=== PATIENT | female | born 2000 | race Caucasian/White ===

== ENCOUNTER 2019-06-12 19:01 | Observation (INO) | payer MEDICAID, OTHER ==
[2019-06-12 19:30] VITALS: BP 121/80; PULSE 92
[2019-06-12 19:59] LABS: Appearance CLEAR (CLEAR); Bilirubin NEGATIVE (NEGATIVE); Blood NEGATIVE Ery/ul (0-5); Epithelial Cells RARE /HPF (FEW); Glucose NEGATIVE (NEGATIVE); Ketones NEGATIVE (NEGATIVE); Leukocyte Esterase NEGATIVE (NEGATIVE); Mucus SLIGHT /HPF (NEGATIVE); Nitrite NEGATIVE (NEGATIVE); Protein,Urine Dip NEGATIVE (Negative); Specific Gravity 1.005 (1.005-1.025); Urobilinogen NEGATIVE mg/dL (0-1)
[2019-06-12 20:10] LABS: Amphetamine,Urine NEGATIVE (NEGATIVE); Barbiturate,Urine NEGATIVE (NEGATIVE); Benzodiazepine,Urine NEGATIVE (NEGATIVE); Cocaine,Urine NEGATIVE (NEGATIVE); Methadone,Urine NEGATIVE (NEGATIVE); Opiate,Urine NEGATIVE (NEGATIVE); PCP,Urine NEGATIVE (NEGATIVE); THC,Urine NEGATIVE (NEGATIVE)
[2019-06-12] MEDS ORDERED: Lactated Ringers 1,000 ML IV ONE ×2 (20:41→20:44)
== END 2019-06-12 22:33 | disposition home or self-care (01) ==
LOC: OB 19:01
PROVIDERS: ADMIT Obstetrics & Gynecology; ATTEND Obstetrics & Gynecology
DX: Z34.82 Encounter for supervision of other normal pregnancy, second trimester (principal)
CPT/HCPCS: 80307; 81001; G0378

== ENCOUNTER 2019-07-29 13:30 | Observation (INO) | payer OTHER ==
[2019-07-29 15:14] VITALS: BP 117/62; PULSE 96; O2SAT 98
== END 2019-07-29 14:50 | disposition home or self-care (01) ==
LOC: OB 13:30
PROVIDERS: ADMIT Family Medicine; ATTEND Family Medicine
DX: Z34.83 Encounter for supervision of other normal pregnancy, third trimester (principal)
CPT/HCPCS: G0378

== ENCOUNTER 2019-08-01 07:14 | Emergency (ER) | payer OTHER ==
--- NOTE | 2019-08-01 07:42 | ERPHSYRPT ---
- History of Present Illness Time Seen by Provider: 08/01/19 07:38 Source: patient, family Exam Limitations: no limitations Physician History: This is a 18-year-old female who is 32 weeks and was diagnosed with tachycardia recently. Patient's retail manager is Dr. Lutz. Patient is known to have induced anemia and an elevated white count yesterday. Dr. Michelle is her OB doctor. Patient senses intermittent palpitations. She denies shortness of breath, cough, chest pain or abdominal pain. She has no vaginal bleeding. She has no fever Timing/Duration: today Activities at Onset: none Quality: other (Palpitations) Chest Pain Radiation: no radiation Severity of Pain-Max: none Severity of Pain-Current: none Modifying Factors: Improves With: nothing Nitro Today/Relief: no nitro taken today Aspirin Treatment Today: no aspirin today Associated Symptoms: denies symptoms Prior Chest Pain/Cardiac Workup: no prior chest pain, recently seen/treated Allergies/Adverse Reactions: No Known Drug Allergies Allergy (Verified 08/01/19 07:30) Home Medications: Vits W-Ca,Fe,FA(<1Mg) [] 1 each PO DAILY 06/12/19 [History] - Review of Systems Constitutional: No Symptoms Eyes: No Symptoms Ears, Nose, & Throat: No Symptoms Respiratory: No Symptoms Cardiac: Palpitations Abdominal/Gastrointestinal: No Symptoms Genitourinary Symptoms: No Symptoms Musculoskeletal: No Symptoms Skin: No Symptoms Neurological: No Symptoms Psychological: No Symptoms Endocrine: No Symptoms Hematologic/Lymphatic: No Symptoms Immunological/Allergic: No Symptoms All Other Systems: Reviewed and Negative - Past Medical History Pertinent Past Medical History: Yes Neurological History: No Pertinent History ENT History: No Pertinent History Cardiac History: No Pertinent History Respiratory History: No Pertinent History Endocrine Medical History: No Pertinent History Musculoskeletal History: No Pertinent History GI Medical History: Irritable Bowel History: No Pertinent History Psycho-Social History: No Pertinent History Female Reproductive Disorders: Other Other Medical History: bicornate uterus - Past Surgical History Past Surgical History: Yes Neuro Surgical History: No Pertinent History Cardiac: No Pertinent History Respiratory: No Pertinent History Gastrointestinal: No Pertinent History Genitourinary: No Pertinent History Musculoskeletal: No Pertinent History Female Surgical History: No Pertinent History - Social History Smoking Status: Never smoker Drug Use: none - Nursing Vital Signs Nursing Vital Signs: Initial Vital Signs Temperature 97.9 F 08/01/19 07:18 Pulse Rate 84 08/01/19 07:18 Respiratory Rate 16 08/01/19 07:18 Blood Pressure 107/72 08/01/19 07:18 O2 Sat by Pulse Oximetry 99 08/01/19 07:18 Pain Scale Pain Intensity 0 - Physical Exam General Appearance: no apparent distress, alert, anxiety Eye Exam: PERRL/EOMI, eyes nml inspection Ears, Nose, Throat Exam: normal ENT inspection, moist mucous membranes Neck Exam: normal inspection, non-tender, supple, full range of motion Respiratory Exam: normal breath sounds, lungs clear, airway intact, No chest tenderness, No respiratory distress Cardiovascular Exam: regular rate/rhythm, normal heart sounds, normal peripheral pulses Gastrointestinal/Abdomen Exam: soft, normal bowel sounds, No tenderness Pelvic Exam: not done Rectal Exam: not done Back Exam: normal inspection, normal range of motion, No CVA tenderness, No vertebral tenderness Extremity Exam: normal inspection, normal range of motion, pelvis stable Neurologic Exam: alert, oriented x 3, cooperative, business management manager II-XII nml as tested, nml cerebellar function, nml station & gait Skin Exam: normal color, warm, dry Lymphatic Exam: No adenopathy SpO2 Interpretation: normal O2 Delivery: Room Air - Course Nursing assessment & vital signs reviewed: Yes EKG Interpreted by Me: RATE (85), NORMAL AXIS, NORMAL INTERVALS, NORMAL QRS, Other (No comparison EKG) Ordered Tests: Active Orders 24 hr Category Date Time Status EKG-ER Only STAT Care 08/01/19 07:46 Active CBC W DIFF Stat Lab 08/01/19 08:02 Completed CMP Stat Lab 08/01/19 08:02 Completed CULTURE,URINE Stat Lab 08/01/19 08:31 Received Manual Differential NC Stat Lab 08/01/19 08:02 Completed T4 (Thyroxine) Stat Lab 08/01/19 08:02 Completed TSH [TSH, 3RD Generation] Stat Lab 08/01/19 08:02 Completed UA W/RFX UR CULTURE Stat Lab 08/01/19 08:31 Completed Medication Summary Discontinued Medications Generic Name Dose Route Start Last Admin Trade Name Freq PRN Reason Stop Dose Admin Cephalexin HCl 500 mg 08/01/19 09:37 08/01/19 09:51 Keflex 500 Mg PO 08/01/19 09:38 500 mg STAT ONE Administration Cephalexin HCl Confirm 08/01/19 09:51 Keflex 500 Mg Administered 08/01/19 09:52 Dose 500 mg .ROUTE .STK-MED ONE Lab/Rad Data: Laboratory Result Diagrams 08/01/19 08:02 08/01/19 08:02 Laboratory Results 08/01/19 08/01/19 08/01/19 Range/Units 08:31 08:02 08:02 WBC (4.0-10.5) K/mm3 RBC (4.1-5.4) M/mm3 Hgb (12.0-16.0) gm/dl Hct (35-47) % MCV (78-100) fl MCH (26-32) pg MCHC (32-36) g/dl RDW (11.5-14.0) % Plt Count (150-450) K/mm3 MPV (7.5-11.0) fl Sodium 136 L (137-145) mmol/L Potassium 4.2 (3.5-5.1) mmol/L Chloride 106 (98-107) mmol/L Carbon Dioxide 25 (22-30) mmol/L Anion Gap 9.2 (5-15) MEQ/L BUN 11 (7-17) mg/dL Creatinine 0.53 (0.52-1.04) mg/dL Estimated GFR > 60.0 ML/MIN Glucose 92 (74-106) mg/dL Calcium 9.3 (8.4-10.2) mg/dL Total Bilirubin 0.30 (0.2-1.3) mg/dL AST 17 (14-36) U/L ALT 16 (0-35) U/L Alkaline Phosphatase 105 (38-126) U/L Serum Total Protein 7.2 (6.3-8.2) g/dL Albumin 3.5 (3.5-5.0) g/dL Thyroxine (T4) 15.0 H (5.53-10.96) ug/dL TSH 3rd Generation (0.47-4.68) mIU/L Urine Color YELLOW (YELLOW) Urine Appearance SLIGHTLY CLOUDY (CLEAR) Urine pH 7.0 (5-6) Ur Specific [place] 1.008 (1.005-1.025) Urine Protein NEGATIVE (Negative) Urine Ketones NEGATIVE (NEGATIVE) Urine Blood NEGATIVE (0-5) Sonido/ul Urine Nitrite NEGATIVE (NEGATIVE) Urine Bilirubin NEGATIVE (NEGATIVE) Urine Urobilinogen NEGATIVE (0-1) mg/dL Ur Leukocyte Esterase MODERATE (NEGATIVE) Urine WBC (Auto) 6-10 (0-5) /HPF Urine RBC (Auto) 3-5 (0-2) /HPF U Epithel Cells (Auto) MODERATE (FEW) /HPF Urine Bacteria (Auto) MODERATE (NEGATIVE) /HPF U Non-Squamous Epi Cells RARE (FEW) /HPF Urine Mucus (Auto) SLIGHT (NEGATIVE) /HPF Urine Culture Reflexed YES (NO) Urine Glucose NEGATIVE (NEGATIVE) mg/dL 08/01/19 08/01/19 Range/Units 08:02 08:02 WBC 14.4 H (4.0-10.5) K/mm3 RBC 3.76 L (4.1-5.4) M/mm3 Hgb 11.0 L (12.0-16.0) gm/dl Hct 33.7 L (35-47) % MCV 89.6 (78-100) fl MCH 29.3 (26-32) pg MCHC 32.6 (32-36) g/dl RDW 12.9 (11.5-14.0) % Plt Count 226 (150-450) K/mm3 MPV 10.9 (7.5-11.0) fl Sodium (137-145) mmol/L Potassium (3.5-5.1) mmol/L Chloride (98-107) mmol/L Carbon Dioxide (22-30) mmol/L Anion Gap (5-15) MEQ/L BUN (7-17) mg/dL Creatinine (0.52-1.04) mg/dL Estimated GFR ML/MIN Glucose (74-106) mg/dL Calcium (8.4-10.2) mg/dL Total Bilirubin (0.2-1.3) mg/dL AST (14-36) U/L ALT (0-35) U/L Alkaline Phosphatase (38-126) U/L Serum Total Protein (6.3-8.2) g/dL Albumin (3.5-5.0) g/dL Thyroxine (T4) (5.53-10.96) ug/dL TSH 3rd Generation 2.810 (0.47-4.68) mIU/L Urine Color (YELLOW) Urine Appearance (CLEAR) Urine pH (5-6) Ur Specific [place] (1.005-1.025) Urine Protein (Negative) Urine Ketones (NEGATIVE) Urine Blood (0-5) Sonido/ul Urine Nitrite (NEGATIVE) Urine Bilirubin (NEGATIVE) Urine Urobilinogen (0-1) mg/dL Ur Leukocyte Esterase (NEGATIVE) Urine WBC (Auto) (0-5) /HPF Urine RBC (Auto) (0-2) /HPF U Epithel Cells (Auto) (FEW) /HPF Urine Bacteria (Auto) (NEGATIVE) /HPF U Non-Squamous Epi Cells (FEW) /HPF Urine Mucus (Auto) (NEGATIVE) /HPF Urine Culture Reflexed (NO) Urine Glucose (NEGATIVE) mg/dL - Progress Progress: improved Air Movement: good Progress Note: 08/01/19 09:55 Differential diagnosis: SVT, hypothyroidism, infection, anxiety, anemia, electrolyte abnormalities Medical decision making: After obtaining the patient's lab work results, the patient has a urinary tract infection and leukocytosis. During her entire stay here she has been in normal sinus rhythm and is currently in normal sinus rhythm with a heart rate in the 70s. I spoke with the patient's retail manager, Dr. Lutz. Reviewing the patient's complaint, history, condition, laboratory work-up and EKG findings, it is recommended that the patient be treated for a her urinary tract infection and to have an event monitor (cardiac) placed for 7 days. At this time her retail manager does not want to blunt her normal, natural response to anemia, infection, etc. he states he would not place the patient on any beta-verónica medication or treat the elevated T4 level at this point. Patient's TSH level is normal. Patient is to follow-up with his office and to Dr. Michelle's office next week. If the patient's symptoms recur, she can return to the emergency department. 08/01/19 10:00 08/01/19 10:01 Blood Culture(s) Obtained: No Antibiotics given: No Counseled pt/family regarding: lab results, diagnosis, need for follow-up - Departure Departure Disposition: Home Clinical Impression: UTI (urinary tract infection), Elevated serum free T4 level Condition: Stable Critical Care Time: No Referrals: DEBORAH MICHELLE DO [Primary Care Provider] - Additional Instructions: Drink plenty of fluids, take medications as prescribed. Follow-up with your agronomy technician and retail manager next week for further management. Return to the emergency department if your symptoms recur. Prescriptions: Cephalexin Mh 500 mg [Keflex 500 mg] 500 mg PO TID #21 capsule
[2019-08-01 08:17] LABS: ALBUMIN 3.5 g/dL (3.5-5.0); ALKALINE PHOSPHATASE 105 U/L (38-126); ANION GAP 9.2 MEQ/L (5-15); BLOOD UREA NITROGEN 11 mg/dL (7-17); CHLORIDE 106 mmol/L (98-107); Calcium 9.3 mg/dL (8.4-10.2); Carbon Dioxide 25 mmol/L (22-30); Creatinine 1 0.53 mg/dL (0.52-1.04); Glucose 92 mg/dL (74-106); Potassium 4.2 mmol/L (3.5-5.1); SGOT/AST 17 U/L (14-36); SGPT/ALT 16 U/L (0-35); SODIUM 136 mmol/L (137-145); Total Protein 7.2 g/dL (6.3-8.2)
[2019-08-01 08:22] LABS: Hematocrit 33.7 % (35-47); Mean Cell Volume 89.6 fl (78-100); Mean Corpuscular Hemoglobin 29.3 pg (26-32); Mean Corpuscular Hgb Concent. 32.6 g/dl (32-36); Mean Platelet Volume 10.9 fl (7.5-11.0); Platelet Count 226 K/mm3 (150-450); Red Blood Count 3.76 M/mm3 (4.1-5.4); Red Cell Distribution Width 12.9 % (11.5-14.0); White Blood Count 14.4 K/mm3 (4.0-10.5)
[2019-08-01 09:26] LABS: Appearance SLIGHTLY CLOUDY (CLEAR); Bacteria MODERATE /HPF (NEGATIVE); Bilirubin NEGATIVE (NEGATIVE); Blood NEGATIVE Ery/ul (0-5); Epithelial Cells MODERATE /HPF (FEW); Glucose NEGATIVE (NEGATIVE); Ketones NEGATIVE (NEGATIVE); Leukocyte Esterase MODERATE (NEGATIVE); Mucus SLIGHT /HPF (NEGATIVE); Nitrite NEGATIVE (NEGATIVE); Non-Squamous Epithelial Cells RARE /HPF (FEW); Protein,Urine Dip NEGATIVE (Negative); Specific Gravity 1.008 (1.005-1.025); Urobilinogen NEGATIVE mg/dL (0-1)
[2019-08-01] MEDS ORDERED: KEFLEX 500 MG PO ONE (09:37)
[2019-08-01] MEDS ORDERED: KEFLEX 500 MG ONE (09:51)
[2019-08-01 09:54] VITALS: BP 117/72; PULSE 83; O2SAT 100
[2019-08-01 10:44] LABS: BAND 1 % (0.0-2.0); Eosinophil 1 % (0.00-3.0); Lymphocytes 17 % (24-44); Monocyte 7 % (0.0-12.0); Neutrophils 74 % (36.0-66.0); Total Cells Counted 100
[2019-08-01 10:49] LABS: Platelet Estimate NORMAL (NORMAL)
== END 2019-08-01 10:25 | disposition home or self-care (01) ==
LOC: ED 07:14
DX: O23.43 Unspecified infection of urinary tract in pregnancy, third trimester (principal); Z3A.32 32 weeks gestation of pregnancy; N39.0 Urinary tract infection, site not specified; R94.6 Abnormal results of thyroid function studies; D72.829 Elevated white blood cell count, unspecified
CPT/HCPCS: 36415; 80053; 81001; 84436; 84443; 84481; 85025; 87086; 93005; 99284; A9270-GY

== ENCOUNTER 2019-08-15 15:48 | Observation (INO) | payer OTHER ==
[2019-08-15 16:52] VITALS: BP 122/71; PULSE 89
[2019-08-15 17:10] LABS: Amourphous Crystal MODERATE /HPF (NEGATIVE); Appearance CLOUDY (CLEAR); Bacteria RARE /HPF (NEGATIVE); Bilirubin NEGATIVE (NEGATIVE); Blood NEGATIVE Ery/ul (0-5); Epithelial Cells FEW /HPF (FEW); Glucose NEGATIVE (NEGATIVE); Ketones NEGATIVE (NEGATIVE); Leukocyte Esterase TRACE (NEGATIVE); Mucus SLIGHT /HPF (NEGATIVE); Nitrite NEGATIVE (NEGATIVE); Protein,Urine Dip NEGATIVE (Negative); Specific Gravity 1.021 (1.005-1.025); Urobilinogen NEGATIVE mg/dL (0-1)
[2019-08-15 17:44] LABS: Amphetamine,Urine NEGATIVE (NEGATIVE); Barbiturate,Urine NEGATIVE (NEGATIVE); Benzodiazepine,Urine NEGATIVE (NEGATIVE); Cocaine,Urine NEGATIVE (NEGATIVE); Methadone,Urine NEGATIVE (NEGATIVE); Opiate,Urine NEGATIVE (NEGATIVE); PCP,Urine NEGATIVE (NEGATIVE); THC,Urine NEGATIVE (NEGATIVE)
== END 2019-08-15 17:55 | disposition home or self-care (01) ==
LOC: OB 15:48
PROVIDERS: ADMIT Obstetrics & Gynecology; ATTEND Obstetrics & Gynecology
DX: Z34.83 Encounter for supervision of other normal pregnancy, third trimester (principal)
CPT/HCPCS: 80307; 81001; G0378

== ENCOUNTER 2019-09-02 11:40 | Observation (INO) | payer OTHER ==
[2019-09-02 12:37] VITALS: O2SAT 98
[2019-09-02 13:03] VITALS: BP 138/65; PULSE 97
== END 2019-09-02 13:00 | disposition home or self-care (01) ==
LOC: OB 11:40
PROVIDERS: ADMIT Obstetrics & Gynecology; ATTEND Obstetrics & Gynecology
DX: Z34.83 Encounter for supervision of other normal pregnancy, third trimester (principal)
CPT/HCPCS: 59025; G0378

== ENCOUNTER 2019-09-07 01:40 | Observation (INO) | payer OTHER ==
[2019-09-07 02:12] LABS: Appearance CLEAR (CLEAR); Bilirubin NEGATIVE (NEGATIVE); Blood NEGATIVE Ery/ul (0-5); Epithelial Cells RARE /HPF (FEW); Glucose NEGATIVE (NEGATIVE); Ketones NEGATIVE (NEGATIVE); Leukocyte Esterase SMALL (NEGATIVE); Mucus SLIGHT /HPF (NEGATIVE); Nitrite NEGATIVE (NEGATIVE); Protein,Urine Dip NEGATIVE (Negative); Specific Gravity 1.021 (1.005-1.025); Urobilinogen NEGATIVE mg/dL (0-1)
[2019-09-07 02:14] VITALS: O2SAT 98
[2019-09-07 02:40] LABS: BASOPHIL % 0.2 % (0.0-0.4); Basophil (Absolute #) 0.02 (0-0.4); Eosinophil % 1.2 % (0.00-5.0); Eosinophil (Absolute #) 0.14 (0-0.5); Hematocrit 32.2 % (35-47); Hemoglobin 10.4 gm/dl (12.0-16.0); Lymphocyte (Absolute #) 1.97 (1.0-4.6); Lymphocytes % 16.9 % (24.0-44.0); Mean Cell Volume 85.6 fl (78-100); Mean Corpuscular Hemoglobin 27.7 pg (26-32); Mean Corpuscular Hgb Concent. 32.3 g/dl (32-36); Mean Platelet Volume 11.4 fl (7.5-11.0); Monocyte (Absolute #) 1.05 (0.0-1.3); Neutrophil % 72.7 % (36.0-66.0); Platelet Count 196 K/mm3 (150-450); Red Blood Count 3.76 M/mm3 (4.1-5.4); Red Cell Distribution Width 13.3 % (11.5-14.0); White Blood Count 11.7 K/mm3 (4.0-10.5)
[2019-09-07 03:00] LABS: Amphetamine,Urine NEGATIVE (NEGATIVE); Barbiturate,Urine NEGATIVE (NEGATIVE); Benzodiazepine,Urine NEGATIVE (NEGATIVE); Cocaine,Urine NEGATIVE (NEGATIVE); Methadone,Urine NEGATIVE (NEGATIVE); Opiate,Urine NEGATIVE (NEGATIVE); PCP,Urine NEGATIVE (NEGATIVE); THC,Urine NEGATIVE (NEGATIVE)
[2019-09-07 03:29] LABS: ALBUMIN 3.3 g/dL (3.5-5.0); ALKALINE PHOSPHATASE 142 U/L (38-126); ANION GAP 10.7 MEQ/L (5-15); BLOOD UREA NITROGEN 14 mg/dL (7-17); CHLORIDE 107 mmol/L (98-107); Carbon Dioxide 23 mmol/L (22-30); Glucose 90 mg/dL (74-106); Potassium 3.9 mmol/L (3.5-5.1); SGOT/AST 17 U/L (14-36); SGPT/ALT 12 U/L (0-35); SODIUM 137 mmol/L (137-145); Total Protein 6.6 g/dL (6.3-8.2); Uric Acid 5.1 mg/dL (2.6-6.0)
[2019-09-07 04:29] VITALS: BP 121/61; PULSE 74
== END 2019-09-07 04:05 | disposition home or self-care (01) ==
LOC: OB 01:40
PROVIDERS: ADMIT Obstetrics & Gynecology; ATTEND Obstetrics & Gynecology
DX: Z34.83 Encounter for supervision of other normal pregnancy, third trimester (principal)
CPT/HCPCS: 36415; 80053; 80307; 81001; 84550; 85025; G0378

== ENCOUNTER 2019-09-18 07:30 | Inpatient (IN) | payer OTHER ==
[2019-09-18] MEDS: CYTOTEC PO PRN ×2 (20:44→22:47)
[2019-09-18 22:50] LABS: Absolute Neutrophil Ct (ANC) 9.52 (1.4-6.9); BASOPHIL % 0.2 % (0.0-0.4); Basophil (Absolute #) 0.02 (0-0.4); Eosinophil % 0.9 % (0.00-5.0); Eosinophil (Absolute #) 0.11 (0-0.5); Hematocrit 33.1 % (35-47); Hemoglobin 10.8 gm/dl (12.0-16.0); Lymphocyte (Absolute #) 1.97 (1.0-4.6); Lymphocytes % 15.6 % (24.0-44.0); Mean Cell Volume 84.9 fl (78-100); Mean Corpuscular Hemoglobin 27.7 pg (26-32); Mean Corpuscular Hgb Concent. 32.6 g/dl (32-36); Mean Platelet Volume 12.4 fl (7.5-11.0); Monocyte (Absolute #) 0.97 (0.0-1.3); Monocytes % 7.7 % (0.0-12.0); Neutrophil % 75.6 % (36.0-66.0); Platelet Count 224 K/mm3 (150-450); Red Cell Distribution Width 13.6 % (11.5-14.0); White Blood Count 12.6 K/mm3 (4.0-10.5)
[2019-09-18 23:07] LABS: Amphetamine,Urine NEGATIVE (NEGATIVE); Barbiturate,Urine NEGATIVE (NEGATIVE); Benzodiazepine,Urine NEGATIVE (NEGATIVE); Cocaine,Urine NEGATIVE (NEGATIVE); Methadone,Urine NEGATIVE (NEGATIVE); Opiate,Urine NEGATIVE (NEGATIVE); PCP,Urine NEGATIVE (NEGATIVE); THC,Urine NEGATIVE (NEGATIVE)
[2019-09-19] MEDS: CYTOTEC PO PRN ×3 (01:01→05:32)
[2019-09-19] MEDS ORDERED: OB EPIDURAL NAROPIN/SUFENTANIL IN NACL EPIDURAL PRN (07:38)
[2019-09-19] MEDS ORDERED: Ephedrine Sulfate 50 MG/ML IV PRN (07:38)
[2019-09-19] MEDS ORDERED: Lactated Ringers 1,000 ML IV ONE (07:38)
[2019-09-19] MEDS: Lactated Ringers 1,000 ML IV SCH ×2 (08:45→18:19)
[2019-09-19] MEDS ORDERED: PITOCIN 30 UNITS/ LR 500 ML 500 ML IV SCH (09:30)
[2019-09-19 11:03] VITALS: O2SAT 97
[2019-09-19] MEDS ORDERED: XYLOCAINE 1% HCL 20 ML MDV IJ PRN (16:10)
[2019-09-19] MEDS ORDERED: LANSINOH 40 GM TOP PRN (16:56)
[2019-09-19] MEDS ORDERED: Mylicon 80MG PO PRN (16:56)
[2019-09-19] MEDS ORDERED: CORTISONE 1% CREAM TP PRN (16:56)
[2019-09-19] MEDS ORDERED: Dulcolax 10 MG SUPP PR PRN (16:56)
[2019-09-19] MEDS ORDERED: Anucort-HC SUPPOSITORY PR PRN (16:56)
[2019-09-19] MEDS ORDERED: TUCKS TP ONE (23:43)
[2019-09-19] MEDS: Dermoplast Spray TP PRN (23:45)
[2019-09-19] MEDS: Colace 100 MG PO SCH (23:46)
[2019-09-19] MEDS: MOTRIN 400 MG PO PRN (23:46)
[2019-09-19] MEDS ORDERED: TUCKS TP PRN (23:57)
[2019-09-20] MEDS: MOTRIN 400 MG PO PRN ×3 (06:16→20:41)
[2019-09-20 06:43] LABS: Absolute Neutrophil Ct (ANC) 9.44 (1.4-6.9); BASOPHIL % 0.2 % (0.0-0.4); Basophil (Absolute #) 0.02 (0-0.4); Eosinophil % 0.8 % (0.00-5.0); Hematocrit 29.3 % (35-47); Hemoglobin 9.3 gm/dl (12.0-16.0); Lymphocyte (Absolute #) 2.25 (1.0-4.6); Lymphocytes % 17.5 % (24.0-44.0); Mean Cell Volume 85.9 fl (78-100); Mean Corpuscular Hemoglobin 27.3 pg (26-32); Mean Corpuscular Hgb Concent. 31.7 g/dl (32-36); Mean Platelet Volume 11.8 fl (7.5-11.0); Monocyte (Absolute #) 1.02 (0.0-1.3); Neutrophil % 73.5 % (36.0-66.0); Platelet Count 188 K/mm3 (150-450); Red Blood Count 3.41 M/mm3 (4.1-5.4); Red Cell Distribution Width 13.7 % (11.5-14.0); White Blood Count 12.8 K/mm3 (4.0-10.5)
[2019-09-20] MEDS: TYLENOL EXTRA STRENGTH 500 MG PO PRN ×2 (10:50→17:27)
[2019-09-20] MEDS: Colace 100 MG PO SCH ×2 (10:51→20:42)
[2019-09-20] MEDS: FERREX 150 PO SCH (10:51)
[2019-09-21] MEDS: TYLENOL EXTRA STRENGTH 500 MG PO PRN ×3 (01:29→22:00)
[2019-09-21] MEDS: MOTRIN 400 MG PO PRN ×3 (05:39→23:12)
[2019-09-21] MEDS: Colace 100 MG PO SCH ×2 (09:34→22:00)
[2019-09-21] MEDS: FERREX 150 PO SCH (09:34)
--- NOTE | 2019-09-21 11:09 | PCM.DCORD ---
- Discharge Prescriptions: No Action Vits W-Ca,Fe,FA(<1Mg) [] 1 each PO DAILY Follow up with: DEBORAH QUIJANO DO [Primary Care Provider] - 11/03/19
--- NOTE | 2019-09-21 11:16 | PCM.DS ---
Discharge Summary Date of Admission: 09/19/19 07:30 Date of Discharge: september 21, 2019 Admitting Physician: DEBORAH QUIJANO DO Consults: PT WAS ADMITTED ON SEPTEMBER 17 FOR INDUCTION WITH CYTOTEC AND NEXT AM WAS STARTED ON PITOCIN WHEN AROM WAS PERFORMED. PT SUBSEQUENTLY DELIVERED IN THE AFTERNOON OF SEPTEMBER 17 WITHOUT COMPLICATION HOWEVER NOTED NUCHAL CORD X 1 AND TRUNKAL CORD THAT WAS NOTED AND REDUCED. PT DID VERY WELL DURING PERIOD AND WAS NOTED HAVING HGB OF 9.3 AND AT THIS TIME IS STABLE FOR DISCHARGE. PT WAS ADVISED TO FU IN OFFICE IN 6 WKS FOR EVALUATION. ALL QUESTIONS ANSWERED TO HER SATISFACTION. Primary Care Provider: DEBORAH QUIJANO DO Allergies Allergies No Known Drug Allergies Allergy (Verified 09/19/19 07:39) Hospital Summary - Vitals & Intake/Output Vital Signs: Vital Signs Temperature 98.1 F 09/21/19 10:00 Pulse Rate 89 09/21/19 10:00 Respiratory Rate 18 09/21/19 10:00 Blood Pressure 120/62 09/21/19 10:00 O2 Sat by Pulse Oximetry 97 09/21/19 02:00 Intake & Output: Intake & Output 09/18/19 09/19/19 09/20/19 09/21/19 11:59 11:59 11:59 11:59 Intake Total 200 3962 2450 Output Total 300 Balance 200 3662 2450 Weight 107.161 kg - Lab Result Diagrams: 09/20/19 05:15 - Procedures and Test Procedures and Tests throughout Hospitalization: Therapy Orders & Screens 09/19/19 16:52 Standby STAT Comment: Final Diagnosis/Problem List - Final Discharge Diagnosis/Problem (1) Labor and delivery complicated by cord around neck, without compression, fetus 4 Current Visit: Yes Status: Resolved Assessment & Plan: SP Code(s): O69.81X4 - LABOR AND DEL COMP BY CORD AROUND NECK, W/O COMPRSN, FETUS 4 - Discharge Disposition: Home, Self-Care Condition: Stable Prescriptions: No Action Vits W-Ca,Fe,FA(<1Mg) [] 1 each PO DAILY Follow up with: DEBORAH QUIJANO DO [Primary Care Provider] - 11/03/19
[2019-09-21] MEDS: Dermoplast Spray TP PRN (22:00)
[2019-09-21 23:32] VITALS: BP 125/60; PULSE 83
== END 2019-09-21 23:40 | disposition home or self-care (01) | DRG 807 ==
LOC: OB 07:30 → OBSVTOIN 09-19 07:30
PROVIDERS: ADMIT Obstetrics & Gynecology; ATTEND Obstetrics & Gynecology
PROC: 10E0XZZ Delivery of Products of Conception, External Approach (ICD-10-PCS; principal; 2019-09-19)
DX: O69.81X0 Labor and delivery complicated by cord around neck, without compression, not applicable or unspecified (principal); Z37.0 Single live birth; O70.0 First degree perineal laceration during delivery; Z3A.39 39 weeks gestation of pregnancy
CPT/HCPCS: 36415; 80307; 85025; 87340; 94799; 99213; G0378; J2590; J2795; A9270-GY

== ENCOUNTER 2021-07-07 16:10 | Emergency (ER) | payer OTHER ==
[2021-07-07 18:49] VITALS: BP 122/62; PULSE 74
--- NOTE | 2021-07-07 18:53 | ERPHSYRPT ---
- History of Present Illness Time Seen by Provider: 07/07/21 17:46 Source: patient Exam Limitations: no limitations Patient Subjective Stated Complaint: pt reports battling constipation during her r/t nausea meds, and - pt states she has not had a normal BM for 16 days and states that she has taken OTC meds and done enemas to try and move her bowels, pt reports today she did pass some very small hard stool and noted in the toilet a large amount of bright red blood that had come from her rectum. pt states that again today she had another stool and more rectal bleeding. Triage Nursing Assessment: pt is aox3, pupils perrl, afebrile, resps easy and non labored, cap refill < 3 seconds, radial pulses strong and equal, pt skin pink warm dry. pt appears in no acute distress. Physician History: 20-year-old with 16 weeks gestation, constipation presented in the ER after she noticed bright red blood per rectal with bowel movement and urination couple of times since noon. Small amount. Patient reports passing hard stool and thinks she has hemorrhoids. Concerned about getting infection. Denies any pelvic cramping, vaginal bleeding or discharge. No urinary complaints. Denies dizzin ess or lightheadedness. No acid reflux. Patient reports he did not notice any blood while she had a urine sampling done in ER Timing/Duration: today, intermittent, sudden, improved Severity: mild Associated Symptoms: No abdominal pain Allergies/Adverse Reactions: No Known Drug Allergies Allergy (Verified 09/19/19 07:39) Home Medications: Vits W-Ca,Fe,FA(<1Mg) [] 1 each PO DAILY 06/12/19 [History] Hx Tetanus, Diphtheria Vaccination/Date Given: Yes Hx Influenza Vaccination/Date Given: Yes Hx Pneumococcal Vaccination/Date Given: Yes Immunizations Up to Date: Yes Travel Risk - International Travel Have you traveled outside of the country in past 3 weeks: No - Coronavirus Screening Are you exhibiting any of the following symptoms?: No - Vaccine Status Have you recieved a Covid-19 vaccination: (unk) Loading Machine Tool 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 - Vaccination Dates Dates if Unknown: unk - Review of Systems Constitutional: No Symptoms Ears, Nose, & Throat: No Symptoms Respiratory: No Symptoms Cardiac: No Symptoms Abdominal/Gastrointestinal: Constipation, Hematochezia Genitourinary Symptoms: No Symptoms Musculoskeletal: No Symptoms Neurological: No Symptoms Psychological: No Symptoms Endocrine: No Symptoms Hematologic/Lymphatic: No Symptoms - Past Medical History Pertinent Past Medical History: Yes Neurological History: No Pertinent History ENT History: No Pertinent History Cardiac History: Other Respiratory History: No Pertinent History Endocrine Medical History: No Pertinent History Musculoskeletal History: No Pertinent History GI Medical History: Irritable Bowel History: No Pertinent History Psycho-Social History: No Pertinent History Female Reproductive Disorders: Other Other Medical History: bicornate uterus, heart palitations. low lying placenta. 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 - Past Surgical History Past Surgical History: Yes Neuro Surgical History: No Pertinent History Cardiac: No Pertinent History Respiratory: No Pertinent History Gastrointestinal: No Pertinent History Genitourinary: No Pertinent History Musculoskeletal: No Pertinent History Female Surgical History: No Pertinent History - Social History Smoking Status: Never smoker Exposure to second hand smoke: Yes Drug Use: none Patient Lives Alone: No - Female History Hx Now: Yes Expected Date of Delivery: 12/23/21 - Nursing Vital Signs Nursing Vital Signs: Initial Vital Signs Temperature 97.4 F 07/07/21 16:34 Pulse Rate 85 07/07/21 16:34 Respiratory Rate 20 07/07/21 16:34 Blood Pressure 107/63 07/07/21 16:34 O2 Sat by Pulse Oximetry 99 07/07/21 16:34 Pain Scale Pain Intensity 0 - Physical Exam General Appearance: no apparent distress, alert Eye Exam: PERRL/EOMI Ears, Nose, Throat Exam: normal ENT inspection Neck Exam: normal inspection, supple, full range of motion Respiratory Exam: normal breath sounds, lungs clear Cardiovascular Exam: regular rate/rhythm, normal heart sounds Gastrointestinal/Abdomen Exam: soft, normal bowel sounds, No tenderness Back Exam: normal inspection Extremity Exam: normal inspection Neurologic Exam: alert, oriented x 3, cooperative Skin Exam: normal color SpO2 Interpretation: normal SpO2: 99 O2 Delivery: Room Air - Progress Progress: unchanged Progress Note: 07/07/21 18:53 As heart tone in 150s. No cramping. Patient refused rectal exam. She is advised to follow-up with her OB/general surgery for reevaluation. Patient left without paperwork. Counseled pt/family regarding: diagnosis, need for follow-up - Departure Departure Disposition: Home Clinical Impression: Rectal bleeding, Condition: Stable Critical Care Time: No Referrals: DOCTOR,NO FAMILY [Primary Care Provider] - Follow up/PCP as directed
[2021-07-07 18:54] VITALS: O2SAT 99
== END 2021-07-07 18:59 | disposition left against medical advice (07) ==
LOC: ED 16:10
DX: K62.5 Hemorrhage of anus and rectum (principal); Z33.1 Pregnant state, incidental; K59.00 Constipation, unspecified
CPT/HCPCS: 99283

== ENCOUNTER 2021-10-20 13:38 | Observation (INO) | payer OTHER ==
[2021-10-20 14:35] VITALS: PULSE 98
[2021-10-20 14:47] LABS: Bacteria RARE /HPF (NEGATIVE); Epithelial Cells FEW /HPF (FEW); Mucus SLIGHT /HPF (NEGATIVE); RBC 0-2 /HPF (0-2); WBC 0-2 /HPF (0-5)
[2021-10-20 14:55] LABS: Appearance CLEAR (CLEAR); Bilirubin NEGATIVE (NEGATIVE); Glucose NEGATIVE (NEGATIVE); Ketones NEGATIVE (NEGATIVE); Nitrite NEGATIVE (NEGATIVE); Protein,Urine Dip TRACE (Negative); RBC NEGATIVE Ery/ul (0-5); Specific Gravity 1.025 (1.005-1.025); Urine Cultured Indicated? YES; Urobilinogen 0.2 mg/dL (0-1)
[2021-10-20 14:57] LABS: Dipstick done @ ? MAIN LAB
[2021-10-20 15:01] LABS: Amphetamine,Urine NEGATIVE (NEGATIVE); Barbiturate,Urine NEGATIVE (NEGATIVE); Benzodiazepine,Urine NEGATIVE (NEGATIVE); Cocaine,Urine NEGATIVE (NEGATIVE); Methadone,Urine NEGATIVE (NEGATIVE); Opiate,Urine NEGATIVE (NEGATIVE); PCP,Urine NEGATIVE (NEGATIVE); THC,Urine NEGATIVE (NEGATIVE)
[2021-10-20 15:57] VITALS: BP 124/64
== END 2021-10-20 15:20 | disposition home or self-care (01) ==
LOC: OB 13:38
PROVIDERS: ADMIT Obstetrics & Gynecology; ATTEND Obstetrics & Gynecology
DX: Z34.83 Encounter for supervision of other normal pregnancy, third trimester (principal); Z3A.30 30 weeks gestation of pregnancy
CPT/HCPCS: 80307; 81015; 87086; 99213; G0378

== ENCOUNTER 2021-11-17 14:58 | Observation (INO) | payer OTHER ==
[2021-11-17 15:45] VITALS: BP 108/70; PULSE 115; O2SAT 96
== END 2021-11-17 16:15 | disposition home or self-care (01) ==
LOC: OB 14:58
PROVIDERS: ADMIT Obstetrics & Gynecology; ATTEND Obstetrics & Gynecology
DX: Z34.83 Encounter for supervision of other normal pregnancy, third trimester (principal); Z3A.34 34 weeks gestation of pregnancy
CPT/HCPCS: G0378

== ENCOUNTER 2021-11-30 14:15 | Emergency (ER) | payer OTHER ==
[2021-11-30] MEDS ORDERED: Sodium Chloride 0.9% 1000 ML 1,000 ML IV STA (14:32)
[2021-11-30] MEDS ORDERED: Sodium Chloride 0.9% 1000 ML 1,000 ML ONE (14:38)
[2021-11-30 14:55] LABS: Absolute Neutrophil Ct (ANC) 8.77 x10^3/uL (1.4-6.9); Basophil (Absolute #) 0.02 x10^3/uL (0-0.4); Eosinophil % 1.5 % (0.00-5.0); Eosinophil (Absolute #) 0.17 x10^3/uL (0-0.5); Hematocrit 31.5 % (35-47); Hemoglobin 9.9 g/dL (12.0-16.0); Lymphocyte (Absolute #) 1.51 x10^3/uL (1.0-4.6); Lymphocytes % 13.3 % (24.0-44.0); Mean Cell Volume 83.8 fL (78-100); Mean Corpuscular Hemoglobin 26.3 pg (26-32); Mean Corpuscular Hgb Concent. 31.4 g/dL (32-36); Mean Platelet Volume 10.8 fL (7.5-11.0); Monocyte (Absolute #) 0.76 x10^3/uL (0.0-1.3); Monocytes % 6.7 % (0.0-12.0); Neutrophil % 77.4 % (36.0-66.0); Platelet Count 225 x10^3/uL (150-450); Red Blood Count 3.76 x10^6/uL (4.1-5.4); Red Cell Distribution Width 13.6 % (11.5-14.0); White Blood Count 11.3 x10^3/uL (4.0-10.5)
[2021-11-30 15:08] LABS: Bacteria RARE /HPF (NEGATIVE); Epithelial Cells RARE /HPF (FEW)
[2021-11-30 15:09] LABS: Appearance CLEAR (CLEAR); Bilirubin NEGATIVE (NEGATIVE); Glucose NEGATIVE (NEGATIVE); Ketones NEGATIVE (NEGATIVE); Ph 6.5 (5-6); Protein,Urine Dip NEGATIVE (Negative); RBC NEGATIVE Ery/ul (0-5); Specific Gravity 1.015 (1.005-1.025); Urobilinogen 0.2 mg/dL (0-1)
[2021-11-30 15:10] LABS: Nitrite NEGATIVE (NEGATIVE); Urine Cultured Indicated? NO
[2021-11-30 15:14] VITALS: BP 106/68; PULSE 102; O2SAT 97
[2021-11-30 15:14] LABS: ALBUMIN 3.4 g/dL (3.5-5.0); ALKALINE PHOSPHATASE 108 U/L (38-126); BLOOD UREA NITROGEN 6 mg/dL (7-17); CHLORIDE 105 mmol/L (98-107); Calcium 8.8 mg/dL (8.4-10.2); Carbon Dioxide 22 mmol/L (22-30); Creatinine 1 0.68 mg/dL (0.52-1.04); EST GLOMERULAR FILTRATION RATE > 60.0 ML/MIN; Glucose 111 mg/dL (74-106); NT PRO BNP 17.2 pg/mL (0-450); Potassium 3.8 mmol/L (3.5-5.1); SGOT/AST 19 U/L (14-36); SGPT/ALT 18 U/L (0-35); SODIUM 134 mmol/L (137-145)
--- NOTE | 2021-11-30 15:27 | ERPHSYRPT ---
- History of Present Illness Time Seen by Provider: 11/30/21 14:25 Source: patient Exam Limitations: no limitations Patient Subjective Stated Complaint: C/O SOB that patient has had for about a week. Patient indicates that when she become SOB and tries to take deep breaths that it causes heart palpitations and pain down her ribs. No current c/o pain at this time. Also states that she has been having severe headaches for about the past week. Some black spots in her vision at times but not right now. Triage Nursing Assessment: Patient ambulated back to ED; she refused to use a wheelchair. She is SOB with exertion. 02 sats 98-100% on room air. SKin tone normal. She is alert and oriented and answering questions appropriately. Lungs clear. Physician History: Patient is a 21-year-old 4 para 1 AB 3 with an EDC of 12/15/2021 who presents with a complaint of shortness of breath for a week she says that she has heart palpitations when she gets short of breath and she has tingling in her hands. She had a near syncopal episode with black spots in her vision associated with some dry heaves. She also complains of a headache for 1 week she denies any fever chills or sweats she has had some nausea and some diarrhea. She apparently with her last term did see Dr. Murdock police manager and had a stress echo at that time which was essentially normal and wore a monitor for 7 days which showed episodes of sinus tachycardia none greater than 125 bpm. Timing/Duration: week(s) (1) Severity: moderate Modifying Factors: Improves With: movement Associated Symptoms: nausea, shortness of breath, headaches, syncope (Near syncope) Allergies/Adverse Reactions: No Known Drug Allergies Allergy (Verified 11/30/21 14:16) Home Medications: No Reportable Medications [No Reported Medications] 11/30/21 [History] Hx Tetanus, Diphtheria Vaccination/Date Given: Yes Hx Influenza Vaccination/Date Given: No Hx Pneumococcal Vaccination/Date Given: No Immunizations Up to Date: Yes Travel Risk - International Travel Have you traveled outside of the country in past 3 weeks: No - Coronavirus Screening Are you exhibiting any of the following symptoms?: Yes Symptoms: Shortness of Breath, Vomiting/Diarrhea - Vaccine Status Have you recieved a Covid-19 vaccination: No Unix Analyst: Unknown - Vaccination Dates Dates if Unknown: unk - Review of Systems Constitutional: No Fever, No Chills Eyes: No Symptoms Ears, Nose, & Throat: No Symptoms Respiratory: Dyspnea, Dyspnea on Exertion ([place]), No Cough Cardiac: No Chest Pain, No Edema, No Syncope Abdominal/Gastrointestinal: Nausea, Diarrhea, No Abdominal Pain, No Vomiting Genitourinary Symptoms: No Dysuria Musculoskeletal: No Back Pain, No Neck Pain Skin: No Rash Neurological: Headache, No Dizziness, No Focal Weakness, No Sensory Changes Psychological: No Symptoms Endocrine: No Symptoms Hematologic/Lymphatic: No Symptoms Immunological/Allergic: No Symptoms All Other Systems: Reviewed and Negative - Past Medical History Pertinent Past Medical History: Yes Neurological History: No Pertinent History ENT History: No Pertinent History Cardiac History: Other Respiratory History: No Pertinent History Endocrine Medical History: No Pertinent History Musculoskeletal History: No Pertinent History GI Medical History: Irritable Bowel History: No Pertinent History Psycho-Social History: No Pertinent History Female Reproductive Disorders: Other Other Medical History: bicornate uterus, low lying placenta, "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" (this is per patient report), heart palpitaions - Past Surgical History Past Surgical History: Yes Neuro Surgical History: No Pertinent History Cardiac: No Pertinent History Respiratory: No Pertinent History Gastrointestinal: No Pertinent History Genitourinary: No Pertinent History Musculoskeletal: No Pertinent History Female Surgical History: No Pertinent History - Social History Smoking Status: Former smoker Exposure to second hand smoke: Yes Drug Use: none Patient Lives Alone: No - Female History Hx Now: Yes Expected Date of Delivery: 12/15/21 Gestational Age: 37 weeks - Nursing Vital Signs Nursing Vital Signs: Initial Vital Signs Temperature 98 F 11/30/21 14:18 Pulse Rate 108 H 11/30/21 14:18 Respiratory Rate 28 H 11/30/21 14:18 Blood Pressure 131/82 11/30/21 14:18 O2 Sat by Pulse Oximetry 100 11/30/21 14:18 Pain Scale Pain Intensity 0 - Physical Exam General Appearance: no apparent distress, alert Eye Exam: PERRL/EOMI, eyes nml inspection Ears, Nose, Throat Exam: normal ENT inspection, TMs normal, pharynx normal, moist mucous membranes Neck Exam: normal inspection, non-tender, supple, full range of motion Respiratory Exam: normal breath sounds, lungs clear, No respiratory distress Cardiovascular Exam: regular rate/rhythm, normal heart sounds, normal peripheral pulses Gastrointestinal/Abdomen Exam: soft, normal bowel sounds, other (Gravid uterus normal heart tonesPatient was monitored by OB personnel.), No tenderness, No mass Back Exam: normal inspection, normal range of motion, No CVA tenderness, No vertebral tenderness Extremity Exam: normal inspection, normal range of motion, pelvis stable Neurologic Exam: alert, oriented x 3, cooperative, normal mood/affect, nml cerebellar function, nml station & gait, sensation nml, No motor deficits Skin Exam: normal color, warm, dry, No rash Lymphatic Exam: No adenopathy SpO2 Interpretation: normal SpO2: 97 O2 Delivery: Room Air - Course Nursing assessment & vital signs reviewed: Yes EKG Interpreted by Me: RATE ([id number]), Sinus Tach, NORMAL AXIS, NORMAL ST-T Ordered Tests: Active Orders 24 hr Category Date Time Status Pot Puncher STAT Care 11/30/21 14:37 Active EKG-ER Only STAT Care 11/30/21 14:32 Active IV Insertion STAT Care 11/30/21 14:32 Active CBC W DIFF Stat Lab 11/30/21 14:25 Completed CMP Stat Lab 11/30/21 14:25 Completed NT PRO BNP Stat Lab 11/30/21 14:25 Completed TROPONIN Q3H Lab 11/30/21 14:25 Completed TROPONIN Q3H Lab 11/30/21 17:45 Ordered TROPONIN Q3H Lab 11/30/21 20:45 Ordered TROPONIN Q3H Lab 11/30/21 23:45 Ordered TROPONIN Q3H Lab 12/01/21 02:45 Ordered UA W/RFX CULTURE Stat Lab 11/30/21 14:48 Results Medication Summary Discontinued Medications Generic Name Dose Route Start Last Admin Trade Name Freq PRN Reason Stop Dose Admin Sodium Chloride 1,000 mls @ 999 mls/hr 11/30/21 14:32 11/30/21 14:44 Sodium Chloride 0.9% 1000 Ml IV 11/30/21 15:32 999 mls/hr .Q1H1M STA Administration Sodium Chloride Confirm 11/30/21 14:38 Sodium Chloride 0.9% 1000 Ml Administered 11/30/21 14:39 Dose 1,000 mls @ ud .ROUTE .K-MED ONE Lab/Rad Data: Laboratory Result Diagrams 11/30/21 14:25 11/30/21 14:25 Laboratory Results 11/30/21 11/30/21 11/30/21 Range/Units 14:50 14:48 14:25 WBC (4.0-10.5) x10^3/uL RBC (4.1-5.4) x10^6/uL Hgb (12.0-16.0) g/dL Hct (35-47) % MCV (78-100) fL MCH (26-32) pg MCHC (32-36) g/dL RDW (11.5-14.0) % Plt Count (150-450) x10^3/uL MPV (7.5-11.0) fL Gran % (36.0-66.0) % Immature Gran % (Auto) (0.00-0.4) % Nucleat RBC Rel Count (0.00-0.1) % Eos # (Auto) (0-0.5) x10^3/uL Immature Gran # (Auto) (0.00-0.03) x10^3u/L Absolute Lymphs (auto) (1.0-4.6) x10^3/uL Absolute Monos (auto) (0.0-1.3) x10^3/uL Absolute Nucleated RBC (0.00-0.01) x10^3u/L Lymphocytes % (24.0-44.0) % Monocytes % (0.0-12.0) % Eosinophils % (0.00-5.0) % Basophils % (0.0-0.4) % Absolute Granulocytes (1.4-6.9) x10^3/uL Basophils # (0-0.4) x10^3/uL Sodium (137-145) mmol/L Potassium (3.5-5.1) mmol/L Chloride (98-107) mmol/L Carbon Dioxide (22-30) mmol/L Anion Gap (5-15) MEQ/L BUN (7-17) mg/dL Creatinine (0.52-1.04) mg/dL Estimated GFR ML/MIN Glucose (74-106) mg/dL Calcium (8.4-10.2) mg/dL Total Bilirubin (0.2-1.3) mg/dL AST (14-36) U/L ALT (0-35) U/L Alkaline Phosphatase (38-126) U/L Troponin I < 0.012 (0.000-0.034) ng/mL NT-Pro-B Natriuret Pep (0-450) pg/mL Serum Total Protein (6.3-8.2) g/dL Albumin (3.5-5.0) g/dL Urinalys Dipstick Clnc Pending Urine Color YELLOW (YELLOW) Urine Appearance CLEAR (CLEAR) Urine pH 6.5 (5-6) Ur Specific [place] 1.015 (1.005-1.025) POC Urine Protein Conf NEGATIVE (Negative) Urine Ketones NEGATIVE (NEGATIVE) Urine Nitrite NEGATIVE (NEGATIVE) Urine Bilirubin NEGATIVE (NEGATIVE) Urine Urobilinogen 0.2 (0-1) mg/dL Urine Leukocytes SMALL (NEGATIVE) Urine WBC (Auto) 3-5 (0-5) /HPF Urine RBC (Auto) NONE (0-2) /HPF U Epithel Cells (Auto) RARE (FEW) /HPF Urine Bacteria (Auto) RARE (NEGATIVE) /HPF Urine RBC NEGATIVE (0-5) Sonido/ul Ur Culture Indicated? NO Urine Glucose NEGATIVE (NEGATIVE) mg/dL Influenza Type A Ag NEGATIVE (NEGATIVE) Influenza Type B Ag NEGATIVE (NEGATIVE) RSV (PCR) NEGATIVE (Negative) SARS-CoV-2 (PCR) NEGATIVE (NEGATIVE) 11/30/21 11/30/21 Range/Units 14:25 14:25 WBC 11.3 H (4.0-10.5) x10^3/uL RBC 3.76 L (4.1-5.4) x10^6/uL Hgb 9.9 L (12.0-16.0) g/dL Hct 31.5 L (35-47) % MCV 83.8 (78-100) fL MCH 26.3 (26-32) pg MCHC 31.4 L (32-36) g/dL RDW 13.6 (11.5-14.0) % Plt Count 225 (150-450) x10^3/uL MPV 10.8 (7.5-11.0) fL Gran % 77.4 H (36.0-66.0) % Immature Gran % (Auto) 0.9 H (0.00-0.4) % Nucleat RBC Rel Count 0.0 (0.00-0.1) % Eos # (Auto) 0.17 (0-0.5) x10^3/uL Immature Gran # (Auto) 0.10 H (0.00-0.03) x10^3u/L Absolute Lymphs (auto) 1.51 (1.0-4.6) x10^3/uL Absolute Monos (auto) 0.76 (0.0-1.3) x10^3/uL Absolute Nucleated RBC 0.00 (0.00-0.01) x10^3u/L Lymphocytes % 13.3 L (24.0-44.0) % Monocytes % 6.7 (0.0-12.0) % Eosinophils % 1.5 (0.00-5.0) % Basophils % 0.2 (0.0-0.4) % Absolute Granulocytes 8.77 H (1.4-6.9) x10^3/uL Basophils # 0.02 (0-0.4) x10^3/uL Sodium 134 L (137-145) mmol/L Potassium 3.8 (3.5-5.1) mmol/L Chloride 105 (98-107) mmol/L Carbon Dioxide 22 (22-30) mmol/L Anion Gap 11.0 (5-15) MEQ/L BUN 6 L (7-17) mg/dL Creatinine 0.68 (0.52-1.04) mg/dL Estimated GFR > 60.0 ML/MIN Glucose 111 H (74-106) mg/dL Calcium 8.8 (8.4-10.2) mg/dL Total Bilirubin 0.50 (0.2-1.3) mg/dL AST 19 (14-36) U/L ALT 18 (0-35) U/L Alkaline Phosphatase 108 (38-126) U/L Troponin I (0.000-0.034) ng/mL NT-Pro-B Natriuret Pep 17.2 (0-450) pg/mL Serum Total Protein 7.0 (6.3-8.2) g/dL Albumin 3.4 L (3.5-5.0) g/dL Urinalys Dipstick Clnc Urine Color (YELLOW) Urine Appearance (CLEAR) Urine pH (5-6) Ur Specific [place] (1.005-1.025) POC Urine Protein Conf (Negative) Urine Ketones (NEGATIVE) Urine Nitrite (NEGATIVE) Urine Bilirubin (NEGATIVE) Urine Urobilinogen (0-1) mg/dL Urine Leukocytes (NEGATIVE) Urine WBC (Auto) (0-5) /HPF Urine RBC (Auto) (0-2) /HPF U Epithel Cells (Auto) (FEW) /HPF Urine Bacteria (Auto) (NEGATIVE) /HPF Urine RBC (0-5) Sonido/ul Ur Culture Indicated? Urine Glucose (NEGATIVE) mg/dL Influenza Type A Ag (NEGATIVE) Influenza Type B Ag (NEGATIVE) RSV (PCR) (Negative) SARS-CoV-2 (PCR) (NEGATIVE) - Progress Progress: improved Discussed with : Shauna (WhileWe discussed the situation with While he is that our work-up would be complete and foods was normal she could be discharged she is anemic 9.9 hemoglobin.) - Departure Departure Disposition: Home Clinical Impression: Anemia affecting Condition: Stable Critical Care Time: No Referrals: DOCTOR,NO FAMILY [Primary Care Provider] - Follow up/PCP as directed Instructions: Anemia Caused by Low Iron, Adult (DC)
[2021-11-30 15:31] LABS: INFLUENZA A NEGATIVE (NEGATIVE); INFLUENZA B NEGATIVE (NEGATIVE); RESPIRATORY SYNCTIAL VIRUS NEGATIVE (Negative); SARS-CoV-2 Xpert Express NEGATIVE (NEGATIVE)
[2021-11-30 16:01] LABS: Dipstick done @ ? MAIN LAB
== END 2021-11-30 16:09 | disposition home or self-care (01) ==
LOC: ED 14:15
DX: O99.013 Anemia complicating pregnancy, third trimester (principal); D64.9 Anemia, unspecified; Z3A.37 37 weeks gestation of pregnancy; R06.02 Shortness of breath; R00.2 Palpitations; R55 Syncope and collapse; R51.9 Headache, unspecified
CPT/HCPCS: 0241U; 36000; 36415; 80053; 81015; 83880; 84484; 85025; 93005; 93041; 99284

== ENCOUNTER 2021-12-15 07:15 | Inpatient (IN) | payer OTHER ==
[2021-12-15] MEDS ORDERED: Zofran 4 MG/2 ML VIAL IV PRN (18:46)
[2021-12-15] MEDS ORDERED: XYLOCAINE 1% HCL 20 ML MDV IJ PRN (18:46)
[2021-12-15] MEDS ORDERED: PITOCIN 30 UNITS/ LR 500 ML 30 UNITS/500 ML PLAST..BAG IV SCH (19:00)
[2021-12-15 19:16] LABS: Absolute Neutrophil Ct (ANC) 9.83 x10^3/uL (1.4-6.9); Basophil (Absolute #) 0.02 x10^3/uL (0-0.4); Eosinophil % 0.9 % (0.00-5.0); Eosinophil (Absolute #) 0.11 x10^3/uL (0-0.5); Hematocrit 30.5 % (35-47); Hemoglobin 9.5 g/dL (12.0-16.0); Lymphocyte (Absolute #) 1.91 x10^3/uL (1.0-4.6); Lymphocytes % 15.1 % (24.0-44.0); Mean Cell Volume 83.3 fL (78-100); Mean Corpuscular Hgb Concent. 31.1 g/dL (32-36); Monocyte (Absolute #) 0.68 x10^3/uL (0.0-1.3); Monocytes % 5.4 % (0.0-12.0); Neutrophil % 77.8 % (36.0-66.0); Platelet Count 236 x10^3/uL (150-450); Red Blood Count 3.66 x10^6/uL (4.1-5.4); Red Cell Distribution Width 14.2 % (11.5-14.0); White Blood Count 12.6 x10^3/uL (4.0-10.5)
[2021-12-15] MEDS: CYTOTEC PO SCH ×3 (19:16→23:18)
[2021-12-15 20:40] LABS: ABO TYPING A; Antibody Screen NEGATIVE (NEGATIVE); RH TYPING POSITIVE
[2021-12-15 21:23] LABS: Amphetamine,Urine NEGATIVE (NEGATIVE); Barbiturate,Urine NEGATIVE (NEGATIVE); Benzodiazepine,Urine NEGATIVE (NEGATIVE); Cocaine,Urine NEGATIVE (NEGATIVE); Methadone,Urine NEGATIVE (NEGATIVE); Opiate,Urine NEGATIVE (NEGATIVE); PCP,Urine NEGATIVE (NEGATIVE); THC,Urine NEGATIVE (NEGATIVE)
[2021-12-16] MEDS ORDERED: STADOL 2 MG IV PRN (00:37)
[2021-12-16] MEDS: CYTOTEC PO SCH ×3 (01:28→07:09)
[2021-12-16] MEDS: TYLENOL 325 MG PO PRN (05:16)
[2021-12-16] MEDS ORDERED: Ephedrine Sulfate 50 MG/ML IV PRN (05:50)
[2021-12-16] MEDS: Lactated Ringers 1,000 ML IV SCH (05:55)
[2021-12-16] MEDS ORDERED: Lactated Ringers 1,000 ML IV ONE (06:00)
[2021-12-16] MEDS ORDERED: FENTANYL 2 MCG-BUPIV 0.125%-NS 250 ML Epidur 250 ML EPIDURAL SCH (06:00)
[2021-12-16] MEDS ORDERED: BENADRYL 50 MG/ML IV ONE (09:33)
[2021-12-16 10:44] LABS: Mucus SLIGHT /HPF (NEGATIVE); WBC 0-2 /HPF (0-5)
[2021-12-16 10:46] LABS: Appearance CLEAR (CLEAR); Bilirubin NEGATIVE (NEGATIVE); Dipstick done @ ? MAIN LAB; Glucose NEGATIVE (NEGATIVE); Ketones NEGATIVE (NEGATIVE); Nitrite NEGATIVE (NEGATIVE); Protein,Urine Dip NEGATIVE (Negative); RBC TRACE NON-HEM Ery/ul (0-5); Urobilinogen 0.2 mg/dL (0-1)
[2021-12-16 10:47] LABS: Bacteria NONE SEEN /HPF (NEGATIVE); Urine Cultured Indicated? NO
[2021-12-16] MEDS ORDERED: Sensorcaine 0.25% 10 ML ONE (11:43)
[2021-12-16] MEDS ORDERED: Restoril 15 MG PO PRN (13:27)
[2021-12-16] MEDS ORDERED: NORCO 5/325 MG PO PRN (13:27)
[2021-12-16] MEDS ORDERED: Mylicon 80MG PO PRN (13:27)
[2021-12-16] MEDS ORDERED: Ambien 10 MG PO PRN (13:27)
[2021-12-16] MEDS ORDERED: CORTISONE 1% CREAM TP PRN (13:27)
[2021-12-16] MEDS ORDERED: Dermoplast Spray TP PRN (13:27)
[2021-12-16] MEDS ORDERED: TYLENOL EXTRA STRENGTH 500 MG PO PRN (13:27)
[2021-12-16] MEDS ORDERED: Anucort-HC SUPPOSITORY PR PRN (13:27)
[2021-12-16] MEDS ORDERED: Dulcolax 10 MG SUPP PR PRN (13:27)
[2021-12-16] MEDS: TUCKS TP PRN (14:04)
[2021-12-16] MEDS ORDERED: Adacel Vial IM ONE (15:00)
[2021-12-16] MEDS: Docusate Sodium 100 MG PO SCH (21:09)
[2021-12-17] MEDS: MOTRIN 400 MG PO PRN (02:59)
[2021-12-17 06:22] LABS: Basophil (Absolute #) 0.03 x10^3/uL (0-0.4); Eosinophil % 1.5 % (0.00-5.0); Eosinophil (Absolute #) 0.18 x10^3/uL (0-0.5); Hematocrit 28.6 % (35-47); Hemoglobin 8.7 g/dL (12.0-16.0); Lymphocyte (Absolute #) 2.41 x10^3/uL (1.0-4.6); Lymphocytes % 19.6 % (24.0-44.0); Mean Cell Volume 83.9 fL (78-100); Mean Corpuscular Hemoglobin 25.5 pg (26-32); Mean Corpuscular Hgb Concent. 30.4 g/dL (32-36); Mean Platelet Volume 11.1 fL (7.5-11.0); Monocyte (Absolute #) 0.97 x10^3/uL (0.0-1.3); Monocytes % 7.9 % (0.0-12.0); Neutrophil % 69.9 % (36.0-66.0); Platelet Count 196 x10^3/uL (150-450); Red Blood Count 3.41 x10^6/uL (4.1-5.4); Red Cell Distribution Width 14.3 % (11.5-14.0); White Blood Count 12.3 x10^3/uL (4.0-10.5)
[2021-12-17] MEDS: Docusate Sodium 100 MG PO SCH ×2 (09:37→22:10)
[2021-12-17] MEDS: FERREX 150 PO SCH (09:37)
[2021-12-17] MEDS: TYLENOL 325 MG PO PRN ×2 (09:50→15:09)
[2021-12-17] MEDS: TUCKS TP PRN (09:52)
--- NOTE | 2021-12-17 10:30 | PCM.NOTE ---
Date and Time: 12/17/21 1029 Subjective Assessment: ppd 1 pt resting in bed and doing well able to ambulate and tolerate diet. vss afebrile abd; soft uterus; firm lochia; mild hgb; 8.7 stable a/p sp ppd 1 doing very well anticipate discharge tomorrow should fu office in 3 wks OBJECTIVE DATA Vital Signs: Vital Signs - 24 hr Temp Pulse Resp BP BP Pulse Ox 12/17/21 08:00 98.1 F 59 L 18 92/52 12/17/21 02:00 97.8 F 71 20 96/52 97 12/16/21 22:42 98.5 F 76 18 100/52 97 12/16/21 16:00 87 18 102/52 100 12/16/21 15:00 98.0 F 94 H 18 100/50 100 12/16/21 14:30 98.0 F 77 18 100/51 99 12/16/21 14:00 98.0 F 81 18 96/52 97 12/16/21 13:45 98.0 F 73 18 100/51 98 12/16/21 13:30 98.0 F 83 18 103/49 97 12/16/21 13:15 98.0 F 96 H 18 111/66 97 12/16/21 12:45 98.9 F 137 H 20 125/57 99 12/16/21 12:30 98.9 F 106 H 20 129/59 110 H 12/16/21 12:15 98.9 F 97 H 20 136/66 110 H 12/16/21 12:00 98.9 F 97 H 20 119/75 97 12/16/21 11:45 98.9 F 97 H 20 135/75 97 12/16/21 11:30 98.9 F 99 H 20 123/70 97 12/16/21 11:15 98.9 F 81 20 119/64 97 12/16/21 11:00 98.9 F 72 20 123/62 97 12/16/21 10:45 98.9 F 93 H 20 125/59 97 12/16/21 10:30 98.9 F 85 20 126/58 97 Pain Assessment - Last Documented Pain Intensity [Bilateral 7 Anterior] Pain Intensity [Right Lower] 2 Pain Intensity 0 Pain Scale Used 0-10 Pain Scale Intake and Output: Intake & Output 12/14/21 12/15/21 12/16/21 12/17/21 11:59 11:59 11:59 11:59 Intake Total 500 Output Total 850 750 Balance -350 -750 Weight 108.862 kg Lab Results: Lab Results-Last 24 Hours 12/16/21 12/17/21 Range/Units 09:40 06:02 WBC 12.3 H (4.0-10.5) x10^3/uL RBC 3.41 L (4.1-5.4) x10^6/uL Hgb 8.7 L (12.0-16.0) g/dL Hct 28.6 L (35-47) % MCV 83.9 (78-100) fL MCH 25.5 L (26-32) pg MCHC 30.4 L (32-36) g/dL RDW 14.3 H (11.5-14.0) % Plt Count 196 (150-450) x10^3/uL MPV 11.1 H (7.5-11.0) fL Gran % 69.9 H (36.0-66.0) % Immature Gran % (Auto) 0.9 H (0.00-0.4) % Nucleat RBC Rel Count 0.0 (0.00-0.1) % Eos # (Auto) 0.18 (0-0.5) x10^3/uL Immature Gran # (Auto) 0.11 H (0.00-0.03) x10^3u/L Absolute Lymphs (auto) 2.41 (1.0-4.6) x10^3/uL Absolute Monos (auto) 0.97 (0.0-1.3) x10^3/uL Absolute Nucleated RBC 0.00 (0.00-0.01) x10^3u/L Lymphocytes % 19.6 L (24.0-44.0) % Monocytes % 7.9 (0.0-12.0) % Eosinophils % 1.5 (0.00-5.0) % Basophils % 0.2 (0.0-0.4) % Absolute Granulocytes 8.60 H (1.4-6.9) x10^3/uL Basophils # 0.03 (0-0.4) x10^3/uL Urinalys Dipstick Clnc MAIN LAB Urine Color DARK YELLOW (YELLOW) Urine Appearance CLEAR (CLEAR) Urine pH 7.0 (5-6) Ur Specific [place] 1.020 (1.005-1.025) POC Urine Protein Conf NEGATIVE (Negative) Urine Ketones NEGATIVE (NEGATIVE) Urine Nitrite NEGATIVE (NEGATIVE) Urine Bilirubin NEGATIVE (NEGATIVE) Urine Urobilinogen 0.2 (0-1) mg/dL Urine Leukocytes NEGATIVE (NEGATIVE) Urine WBC (Auto) 0-2 (0-5) /HPF Urine RBC (Auto) 3-5 (0-2) /HPF U Epithel Cells (Auto) NONE (FEW) /HPF Urine Bacteria (Auto) NONE SEEN (NEGATIVE) /HPF Urine RBC TRACE NON-HEM (0-5) Sonido/ul Urine Mucus (Auto) SLIGHT (NEGATIVE) /HPF Ur Culture Indicated? NO Urine Glucose NEGATIVE (NEGATIVE) mg/dL Assessment/Plan (1) Vaginal delivery Current Visit: Yes Status: Acute Code(s): O80 - ENCOUNTER FOR FULL-TERM UNCOMPLICATED DELIVERY
--- NOTE | 2021-12-17 10:34 | PCM.DS ---
Discharge Summary Date of Admission: 12/16/21 07:15 Admitting Physician: DEBORAH QUIJANO DO Consults: Consults on Case 12/16/21 00:40 Notify Anesthesia Provider PRN 12/16/21 13:28 Notify Physician ROUTINE 12/16/21 17:44 Navigation ONCE Primary Care Provider: NO FAMILY DOCTOR Allergies Allergies No Known Drug Allergies Allergy (Verified 11/30/21 14:16) Hospital Summary - Hospital Course Hospital Course: pt was admitted on december 15 for oral cytotec and subsequently delivered live baby boy via without complication on december 16. during period did very well able to ambulate and tolerate diet. pt had stable hgb level at 8.7 where prior hgb was 9.2. pt advised to fu in office in 3 wks for care. all questions answered to her satisfaction. - Vitals & Intake/Output Vital Signs: Vital Signs Temperature 98.1 F 12/17/21 08:00 Pulse Rate 59 L 12/17/21 08:00 Respiratory Rate 18 12/17/21 08:00 Blood Pressure 92/52 12/17/21 08:00 O2 Sat by Pulse Oximetry 97 12/17/21 02:00 Intake & Output: Intake & Output 12/14/21 12/15/21 12/16/21 12/17/21 11:59 11:59 11:59 11:59 Intake Total 500 Output Total 850 750 Balance -350 -750 Weight 108.862 kg - Lab Result Diagrams: 12/17/21 06:02 Lab Results-Last 24 Hrs: Lab Results-Last 24 Hours 12/16/21 12/17/21 Range/Units 09:40 06:02 WBC 12.3 H (4.0-10.5) x10^3/uL RBC 3.41 L (4.1-5.4) x10^6/uL Hgb 8.7 L (12.0-16.0) g/dL Hct 28.6 L (35-47) % MCV 83.9 (78-100) fL MCH 25.5 L (26-32) pg MCHC 30.4 L (32-36) g/dL RDW 14.3 H (11.5-14.0) % Plt Count 196 (150-450) x10^3/uL MPV 11.1 H (7.5-11.0) fL Gran % 69.9 H (36.0-66.0) % Immature Gran % (Auto) 0.9 H (0.00-0.4) % Nucleat RBC Rel Count 0.0 (0.00-0.1) % Eos # (Auto) 0.18 (0-0.5) x10^3/uL Immature Gran # (Auto) 0.11 H (0.00-0.03) x10^3u/L Absolute Lymphs (auto) 2.41 (1.0-4.6) x10^3/uL Absolute Monos (auto) 0.97 (0.0-1.3) x10^3/uL Absolute Nucleated RBC 0.00 (0.00-0.01) x10^3u/L Lymphocytes % 19.6 L (24.0-44.0) % Monocytes % 7.9 (0.0-12.0) % Eosinophils % 1.5 (0.00-5.0) % Basophils % 0.2 (0.0-0.4) % Absolute Granulocytes 8.60 H (1.4-6.9) x10^3/uL Basophils # 0.03 (0-0.4) x10^3/uL Urinalys Dipstick Clnc MAIN LAB Urine Color DARK YELLOW (YELLOW) Urine Appearance CLEAR (CLEAR) Urine pH 7.0 (5-6) Ur Specific [place] 1.020 (1.005-1.025) POC Urine Protein Conf NEGATIVE (Negative) Urine Ketones NEGATIVE (NEGATIVE) Urine Nitrite NEGATIVE (NEGATIVE) Urine Bilirubin NEGATIVE (NEGATIVE) Urine Urobilinogen 0.2 (0-1) mg/dL Urine Leukocytes NEGATIVE (NEGATIVE) Urine WBC (Auto) 0-2 (0-5) /HPF Urine RBC (Auto) 3-5 (0-2) /HPF U Epithel Cells (Auto) NONE (FEW) /HPF Urine Bacteria (Auto) NONE SEEN (NEGATIVE) /HPF Urine RBC TRACE NON-HEM (0-5) Sonido/ul Urine Mucus (Auto) SLIGHT (NEGATIVE) /HPF Ur Culture Indicated? NO Urine Glucose NEGATIVE (NEGATIVE) mg/dL Final Diagnosis/Problem List - Final Discharge Diagnosis/Problem (1) Vaginal delivery Current Visit: Yes Status: Acute Code(s): O80 - ENCOUNTER FOR FULL-TERM [facility] OMPLICATED DELIVERY - Discharge Disposition: Home, Self-Care Condition: Stable Prescriptions: [place] Polysaccharides Complex [Ferrex 150] 150 mg PO DAILY #30 Follow up with: DOCTOR,NO FAMILY [Primary Care Provider] - DEBORAH QUIJANO DO [ACTIVE STAFF] - 3 weeks
[2021-12-17 17:09] LABS: HBsAg Screen Negative (Negative)
[2021-12-18] MEDS: Lactated Ringers 1,000 ML IV SCH ×3 (01:00→01:02)
[2021-12-18] MEDS: CYTOTEC PO SCH (01:00)
[2021-12-18] MEDS: TYLENOL 325 MG PO PRN (01:55)
[2021-12-18 07:40] VITALS: O2SAT 98
[2021-12-18] MEDS: Docusate Sodium 100 MG PO SCH (11:41)
[2021-12-18] MEDS: FERREX 150 PO SCH (11:41)
[2021-12-18 12:49] VITALS: BP 100/50; PULSE 73
[2021-12-18] MEDS: MOTRIN 400 MG PO PRN (13:22)
== END 2021-12-18 14:40 | disposition home or self-care (01) | DRG 807 ==
LOC: OB 07:15 → OBSVTOIN 12-16 07:15
PROVIDERS: ADMIT Obstetrics & Gynecology; ATTEND Obstetrics & Gynecology
PROC: 10E0XZZ Delivery of Products of Conception, External Approach (ICD-10-PCS; principal; 2021-12-16)
DX: O80 Encounter for full-term uncomplicated delivery (principal); Z37.0 Single live birth; Z3A.39 39 weeks gestation of pregnancy
CPT/HCPCS: 36415; 59409; 80307; 81015; 82947; 85025; 86850; 86900; 86901; 87340; 90471; 90715; G0378; J1200; J2405; J2590; A9270-GY

== ENCOUNTER 2021-12-28 22:13 | Emergency (ER) | payer OTHER ==
--- NOTE | 2021-12-28 22:32 | ERPHSYRPT ---
- History of Present Illness Time Seen by Provider: 12/28/21 22:26 Source: patient Exam Limitations: no limitations Physician History: This is a 21-year-old white female who gave to a baby boy on 12/16/[address] Michelle is the patient's rn transitional. Patient was discharged to home on 12/17/2021 with a blood pressure of 92/52 and heart rate of 59. Her hemoglobin on that date was 8.7. Patient has had periodic spotting since her discharge date of 12/17/2021. However in the last 24 hours she has changed a pad every hour since she passed some tissue 24 hours ago. Patient states the amount of bleeding is like a menstrual period as is the pelvic cramping. She is not had any nausea or vomiting. She has no diarrhea. She has no complaints of any dizziness or weakness. She is taking a vitamin with iron. Patient states that she is not breast-feeding. Upon arrival to the emergency department the patient's systolic blood pressure is in the 130s and her heart rate is 100/min Activites at Onset: none Quality: cramping (Pelvic) Onset Location: other (Crampy suprapubic and pelvic discomfort) Pain Radiation: none Severity of Pain-Max: mild Severity of Pain-Current: mild Sexual intercourse history: non-contributory Associated Symptoms: vaginal discharge (Vaginal bleeding), No fever, No nausea, No vomiting, No dysuria Allergies/Adverse Reactions: No Known Drug Allergies Allergy (Verified 11/30/21 14:16) Home Medications: Pnv,Calcium 72/Iron,Carb/Folic [ Plus Iron Tablet] 1 each PO DAILY 12/28/21 [History] Hx Tetanus, Diphtheria Vaccination/Date Given: Yes Hx Influenza Vaccination/Date Given: No Hx Pneumococcal Vaccination/Date Given: No Travel Risk - International Travel Have you traveled outside of the country in past 3 weeks: No - Coronavirus Screening Are you exhibiting any of the following symptoms?: No Close contact with a COVID-19 positive Pt in past 14-21 Days: No - Vaccine Status Have you recieved a Covid-19 vaccination: No 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 - Vaccination Dates Dates if Unknown: unk - Review of Systems Constitutional: No Symptoms Eyes: No Symptoms Ears, Nose, & Throat: No Symptoms Respiratory: No Symptoms Cardiac: No Symptoms Abdominal/Gastrointestinal: Abdominal Pain (Mild suprapubic and pelvic cramping) Genitourinary Symptoms: No Symptoms, Vaginal Bleeding (She describes it like a menstrual period) Musculoskeletal: No Symptoms Skin: No Symptoms Neurological: No Symptoms Psychological: No Symptoms Endocrine: No Symptoms Hematologic/Lymphatic: No Symptoms Immunological/Allergic: No Symptoms All Other Systems: Reviewed and Negative - Past Medical History Pertinent Past Medical History: Yes Neurological History: No Pertinent History ENT History: No Pertinent History Cardiac History: Other Respiratory History: No Pertinent History Endocrine Medical History: No Pertinent History Musculoskeletal History: No Pertinent History GI Medical History: Irritable Bowel History: No Pertinent History Psycho-Social History: No Pertinent History Female Reproductive Disorders: Other Other Medical History: bicornate uterus, low lying placenta, "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" (this is per patient report) holes resolved, heart palpitaions - Past Surgical History Past Surgical History: Yes Neuro Surgical History: No Pertinent History Cardiac: No Pertinent History Respiratory: No Pertinent History Gastrointestinal: No Pertinent History Genitourinary: No Pertinent History Musculoskeletal: No Pertinent History Female Surgical History: No Pertinent History - Social History Smoking Status: Former smoker Exposure to second hand smoke: Yes Drug Use: none Patient Lives Alone: No - Nursing Vital Signs Nursing Vital Signs: Initial Vital Signs Temperature 97.1 F 12/28/21 22:24 Pulse Rate 96 H 12/28/21 22:24 Respiratory Rate 18 12/28/21 22:24 Blood Pressure 132/89 12/28/21 22:24 O2 Sat by Pulse Oximetry 98 12/28/21 22:24 Pain Scale Pain Intensity 2 - Physical Exam General Appearance: no apparent distress, alert, anxiety Eye Exam: PERRL/EOMI, eyes nml inspection Ears, Nose, Throat Exam: normal ENT inspection, moist mucous membranes Neck Exam: normal inspection, non-tender, supple, full range of motion Respiratory Exam: normal breath sounds, lungs clear, airway intact, No chest ten derness, No respiratory distress Cardiovascular Exam: regular rate/rhythm, normal heart sounds, normal peripheral pulses Gastrointestinal/Abdomen Exam: soft, normal bowel sounds, tenderness (Very mild tenderness to palpation suprapubic region. No rebound or guarding) Pelvic Exam: not done Rectal Exam: not done Back Exam: normal inspection, normal range of motion, No CVA tenderness, No vertebral tenderness Extremity Exam: normal inspection, normal range of motion, pelvis stable Neurologic Exam: alert, oriented x 3, cooperative, recruiting team lead II-XII nml as tested, normal mood/affect, nml cerebellar function, nml station & gait, sensation nml Skin Exam: normal color, warm, dry Lymphatic Exam: No adenopathy SpO2 Interpretation: normal O2 Delivery: Room Air - Course Nursing assessment & vital signs reviewed: Yes Ordered Tests: Active Orders 24 hr Category Date Time Status IV Insertion STAT Care 12/28/21 22:33 Active CBC W DIFF Stat Lab 12/28/21 22:47 Completed CMP Stat Lab 12/28/21 22:47 Completed CULTURE,URINE Stat Lab 12/28/21 22:47 Received UA W/RFX CULTURE Stat Lab 12/28/21 22:47 Completed Medication Summary Generic Name Dose Route Start Last Admin Trade Name Freq PRN Reason Stop Dose Admin Sodium Chloride 1,000 mls @ 999 mls/hr 12/28/21 22:33 12/28/21 22:47 Sodium Chloride 0.9% 1000 Ml IV 12/28/21 23:33 999 mls/hr .[id number] STA Administration Discontinued Medications Generic Name Dose Route Start Last Admin Trade Name Freq PRN Reason Stop Dose Admin Sodium Chloride Confirm 12/28/21 22:42 Sodium Chloride 0.9% 1000 Ml Administered 12/28/21 22:43 Dose 1,000 mls @ ud .ROUTE .STK-MED ONE Lab/Rad Data: Laboratory Result Diagrams 12/28/21 22:47 12/28/21 22:47 Laboratory Results 12/28/21 12/28/21 12/28/21 Range/Units 22:47 22:47 22:47 WBC 10.4 (4.0-10.5) x10^3/uL RBC 4.55 (4.1-5.4) x10^6/uL Hgb 11.6 L (12.0-16.0) g/dL Hct 37.2 (35-47) % MCV 81.8 (78-100) fL MCH 25.5 L (26-32) pg MCHC 31.2 L (32-36) g/dL RDW 14.4 H (11.5-14.0) % Plt Count 364 (150-450) x10^3/uL MPV 9.9 (7.5-11.0) fL Gran % 59.6 (36.0-66.0) % Immature Gran % (Auto) 0.2 (0.00-0.4) % Nucleat RBC Rel Count 0.0 (0.00-0.1) % Eos # (Auto) 0.98 H (0-0.5) x10^3/uL Immature Gran # (Auto) 0.02 (0.00-0.03) x10^3u/L Absolute Lymphs (auto) 2.58 (1.0-4.6) x10^3/uL Absolute Monos (auto) 0.54 (0.0-1.3) x10^3/uL Absolute Nucleated RBC 0.00 (0.00-0.01) x10^3u/L Lymphocytes % 24.8 (24.0-44.0) % Monocytes % 5.2 (0.0-12.0) % Eosinophils % 9.4 H (0.00-5.0) % Basophils % 0.8 (0.0-0.4) % Absolute Granulocytes 6.20 (1.4-6.9) x10^3/uL Basophils # 0.08 (0-0.4) x10^3/uL Sodium 141 (137-145) mmol/L Potassium 3.9 (3.5-5.1) mmol/L Chloride 109 H (98-107) mmol/L Carbon Dioxide 24 (22-30) mmol/L Anion Gap 12.5 (5-15) MEQ/L BUN 14 (7-17) mg/dL Creatinine 0.95 (0.52-1.04) mg/dL Estimated GFR > 60.0 ML/MIN Glucose 97 (74-106) mg/dL Calcium 9.7 (8.4-10.2) mg/dL Total Bilirubin 0.30 (0.2-1.3) mg/dL AST 22 (14-36) U/L ALT 23 (0-35) U/L Alkaline Phosphatase 68 (38-126) U/L Serum Total Protein 8.0 (6.3-8.2) g/dL Albumin 4.2 (3.5-5.0) g/dL Urinalys Dipstick Clnc MAIN LAB Urine Color YELLOW (YELLOW) Urine Appearance CLEAR (CLEAR) Urine pH 5.5 (5-6) Ur Specific [place] >=1.030 (1.005-1.025) POC Urine Protein Conf 30 (Negative) Urine Ketones NEGATIVE (NEGATIVE) Urine Nitrite NEGATIVE (NEGATIVE) Urine Bilirubin NEGATIVE (NEGATIVE) Urine Urobilinogen 0.2 (0-1) mg/dL Urine Leukocytes MODERATE (NEGATIVE) Urine WBC (Auto) >100 (0-5) /HPF Urine RBC (Auto) >101 (0-2) /HPF U Epithel Cells (Auto) RARE (FEW) /HPF Urine Bacteria (Auto) RARE (NEGATIVE) /HPF Urine RBC LARGE (0-5) Sonido/ul Unidentified Crystals 25-50 (NEGATIVE) /HPF Urine Mucus (Auto) SLIGHT (NEGATIVE) /HPF Ur Culture Indicated? YES Urine Glucose NEGATIVE (NEGATIVE) mg/dL - Progress Progress: improved Air Movement: good Blood Culture(s) Obtained: No Antibiotics given: Yes Discussed with : Shauna (I discussed with Regarding the patient's complaint, physical findings and laboratory results. He agrees patient can be discharged to home.) Counseled pt/family regarding: lab results, diagnosis, need for follow-up - Departure Departure Disposition: Home Clinical Impression: hemorrhage of vagina, UTI (urinary tract infection) Condition: Stable Critical Care Time: No Referrals: DEBORAH MICHELLE DO [Primary Care Provider] - Follow up/PCP as directed Additional Instructions: Drink plenty of fluids. Take your antibiotics as prescribed. Continue your vitamin with iron. Call your rn transitional's office tomorrow to make arrangements for follow-up appointment. Prescriptions: Ciprofloxacin [Cipro 500 MG] 500 mg PO BID #14 tablet
[2021-12-28 22:42] VITALS: O2SAT 98
[2021-12-28] MEDS ORDERED: Sodium Chloride 0.9% 1000 ML 1,000 ML ONE (22:42)
[2021-12-28] MEDS: Sodium Chloride 0.9% 1000 ML 1,000 ML IV STA (22:47)
[2021-12-28 22:53] LABS: Basophil (Absolute #) 0.08 x10^3/uL (0-0.4); Eosinophil % 9.4 % (0.00-5.0); Eosinophil (Absolute #) 0.98 x10^3/uL (0-0.5); Hematocrit 37.2 % (35-47); Hemoglobin 11.6 g/dL (12.0-16.0); Lymphocyte (Absolute #) 2.58 x10^3/uL (1.0-4.6); Lymphocytes % 24.8 % (24.0-44.0); Mean Cell Volume 81.8 fL (78-100); Mean Corpuscular Hemoglobin 25.5 pg (26-32); Mean Corpuscular Hgb Concent. 31.2 g/dL (32-36); Mean Platelet Volume 9.9 fL (7.5-11.0); Monocyte (Absolute #) 0.54 x10^3/uL (0.0-1.3); Monocytes % 5.2 % (0.0-12.0); Neutrophil % 59.6 % (36.0-66.0); Platelet Count 364 x10^3/uL (150-450); Red Blood Count 4.55 x10^6/uL (4.1-5.4); Red Cell Distribution Width 14.4 % (11.5-14.0); White Blood Count 10.4 x10^3/uL (4.0-10.5)
[2021-12-28 22:56] LABS: Appearance CLEAR (CLEAR); Bilirubin NEGATIVE (NEGATIVE); Glucose NEGATIVE (NEGATIVE)
[2021-12-28 22:57] LABS: Dipstick done @ ? MAIN LAB; Ketones NEGATIVE (NEGATIVE); Nitrite NEGATIVE (NEGATIVE); Ph 5.5 (5-6); Protein,Urine Dip 30 (Negative); RBC LARGE Ery/ul (0-5); Specific Gravity >=1.030 (1.005-1.025); Urobilinogen 0.2 mg/dL (0-1)
[2021-12-28 23:02] LABS: Bacteria RARE /HPF (NEGATIVE); Crystals Unidentified 25-50 /HPF (NEGATIVE); Epithelial Cells RARE /HPF (FEW); Mucus SLIGHT /HPF (NEGATIVE); WBC >100 /HPF (0-5)
[2021-12-28 23:03] LABS: ALBUMIN 4.2 g/dL (3.5-5.0); ALKALINE PHOSPHATASE 68 U/L (38-126); ANION GAP 12.5 MEQ/L (5-15); BLOOD UREA NITROGEN 14 mg/dL (7-17); CHLORIDE 109 mmol/L (98-107); Calcium 9.7 mg/dL (8.4-10.2); Carbon Dioxide 24 mmol/L (22-30); Creatinine 1 0.95 mg/dL (0.52-1.04); EST GLOMERULAR FILTRATION RATE > 60.0 ML/MIN; Glucose 97 mg/dL (74-106); Potassium 3.9 mmol/L (3.5-5.1); RBC >101 /HPF (0-2); SGOT/AST 22 U/L (14-36); SGPT/ALT 23 U/L (0-35); SODIUM 141 mmol/L (137-145); Urine Cultured Indicated? YES
[2021-12-28] MEDS ORDERED: ROCEPHIN 1 Gm-D5w 50 ml Bag** 1 G/50 ML IVPB IV ONE (23:19)
[2021-12-28] MEDS: ROCEPHIN 1 Gm-D5w 50 ml Bag** 1 G/50 ML IVPB IV STA (23:22)
[2021-12-28 23:51] VITALS: BP 128/68; PULSE 73
== END 2021-12-28 23:57 | disposition home or self-care (01) ==
LOC: ED 22:13
DX: O86.20 Urinary tract infection following delivery, unspecified (principal); N39.0 Urinary tract infection, site not specified; O72.1 Other immediate postpartum hemorrhage; R10.2 Pelvic and perineal pain; Z28.310 Unvaccinated for COVID-19
CPT/HCPCS: 36000; 36415; 80053; 81015; 85025; 87086; 96360; 99284; J0696